=== PATIENT | female | born 1990 | race Caucasian/White ===

== ENCOUNTER 2018-05-27 20:45 | Emergency (ER) | payer OTHER ==
[~2018-05-27] VITALS: Ht 162.6 cm; Wt 95.6 kg
[~2018-05-27 20:45] MED LIST: ALBUTEROL SUL0.083 % IN; AZITHROMYCIN250 MG PO; MEDDOSEPAK PO; NO CURRENT MEDS; POM PO; PRENATA7 PO; PULMICORT0.5MG/2ML IN; VENTOLIN HFA IN
[2018-05-27 22:49] LABS: HEMATOCRIT 36.7 % (37.0-47.0); HEMOGLOBIN 11.5 g/dl (12.0-16.0); IMMATURE GRANULOCYTES 0.3 % (0.0-5.0); MEAN CELL VOLUME 81.4 fL CALC (80.0-100.0); MEAN CORPUSCULAR HGB 25.5 pG CALC (26.0-32.0); MEAN CORPUSCULAR HGB CONC 31.3 g/L CALC (32.0-36.0); NEUT# 5.25 thou/uL (2.00-7.15); RED BLOOD COUNT 4.51 mill/uL (4.20-5.60); RED CELL DISTRI WIDTH 14.2 % (11.5-15.5)
[2018-05-27 23:04] LABS: ALBUMIN 4.3 g/dL (3.2-5.0); ALKALINE PHOSPHATASE 69 u/l (38-126); ANION GAP 13 (6-22 (CALC)); BILIRUBIN, TOTAL 0.3 mg/dL (0.0-1.4); BUN 15 mg/dL (7-17); BUN/CREATININE RATIO 19 (12-20 (CALC)); CARBON DIOXIDE 29 mmol/l (22-30); CHLORIDE 100 mmol/l (95-108); CREATININE 0.8 mg/dL (0.5-1.0); GFR > 60 ML/MIN (>=60 (CALC)); GFR FOR AFR.AMER. > 60 ML/MIN (>=60 (CALC)); SGOT/AST 19 u/l (14-36); SODIUM 138 mmol/l (137-146); TOTAL PROTEIN 7.7 g/dL (6.3-8.2)
[2018-05-27 23:16] LABS: MYOGLOBIN 20 ng/mL (0 - 62)
[2018-05-27] MEDS ORDERED: ANTIVERT PO (23:34)
[2018-05-27 23:40] VITALS: BP 113/57
== END 2018-05-27 23:40 | disposition home or self-care (01) ==
LOC: ED 20:45
PROVIDERS: Family Medicine
DX: R42 Dizziness and giddiness (principal); J45.909 Unspecified asthma, uncomplicated

== ENCOUNTER 2022-09-21 08:25 | Emergency (ER) | payer OTHER ==
[~2022-09-21] VITALS: Ht 162.6 cm; Wt 100.0 kg
[~2022-09-21 08:25] MED LIST changes: +ANTIVERT PO
[2022-09-21 08:29] VITALS: BP 126/82
[2022-09-21 08:46] VITALS: BP 137/93
[2022-09-21 09:01] VITALS: BP 125/84
[2022-09-21 09:16] VITALS: BP 121/87
[2022-09-21 09:31] VITALS: BP 129/85
[2022-09-21] MEDS ORDERED: ZPAK PO (09:32)
[2022-09-21 10:03] VITALS: BP 129/85
== END 2022-09-21 10:04 | disposition home or self-care (01) | DRG 153 ==
LOC: ED 08:25
DX: J06.9 Acute upper respiratory infection, unspecified (principal); H66.92 Otitis media, unspecified, left ear; J45.909 Unspecified asthma, uncomplicated; Z20.822 Contact with and (suspected) exposure to COVID-19